=== PATIENT | female | born 1960 | race Caucasian/White ===

== ENCOUNTER 2021-11-06 19:09 | Outpatient (CLI) | payer BC ==
[2021-11-06 19:26] LABS: #Lymphocytes 1.3 thou/uL (1.20-3.40); #Monocytes 0.4 thou/uL (0.11-0.59); #Neutrophils 2.6 thou/uL (1.40-6.50); %Basophils 1.1 % (0.0-1.0); %Eosinophils 0.1 % (0.0-10.0); %Lymphocytes 29.4 % (21.0-51.0); %Neutrophils 59.4 % (42.0-75.0); Hemoglobin 15.4 g/dL (12.0-16.0); Mean Corpuscular HGB CONC 32.7 g/dL (32.0-36.0); Mean Corpuscular Hemoglobin 33.3 pg (27.0-31.0); Mean Platelet Volume 9.2 fL (7.4-10.4); Platelet Count 186 thou/uL (130-400); RBC Distribution Width 12.4 % (11.5-14.5); Red Blood Cell (RBC) Count 4.63 mill/uL (4.20-5.40); White Blood Cell (WBC) Count 4.4 thou/uL (4.8-10.8)
[2021-11-06 19:59] LABS: Anion Gap 18 mmol/L (10-20); BUN (Urea Nitrogen) 13 mg/dL (9.8-20.1); Calc. Creatinine Clearance 0 mL/min (70-130); Calcium 9.8 mg/dL (7.8-10.44); Carbon Dioxide 28 mmol/L (23-31); Chloride 95 mmol/L (98-107); Glucose 124 mg/dL (80-115); Sodium 138 mmol/L (136-145)
[2021-11-06 20:12] LABS: Potassium 2.9 mmol/L (3.5-5.1)
== END 2021-11-06 19:10 | disposition home or self-care (01) ==
LOC: BURLAB 19:09
PROVIDERS: ATTEND Nurse Practitioner
DX: R50.9 Fever, unspecified (principal); E87.6 Hypokalemia
CPT/HCPCS: 36415; 71046; 80048; 83605; 85025